=== PATIENT | male | born 1985 | race African-American/Black ===

== ENCOUNTER 2020-11-19 17:59 | Observation (INO) | payer SELFPAY ==
[~2020-11-19] VITALS: Ht 172.7 cm; Wt 78.8 kg
[2020-11-19] MEDS ORDERED: ETOMIDATE 20 MG/10 ML VIAL. IV ONE (18:19)
[2020-11-19] MEDS ORDERED: SUCCINYLCHOLINE 200 MG/10 ML VIAL. ONE (18:20)
--- NOTE | 2020-11-19 18:23 | PHYS DOC ---
Past Medical History Past Medical History: No Pertinent History Past Surgical History: No Surgical History Alcohol Use: Occasionally Drug Use: None General Adult EDM: Chief Complaint: SEIZURE Problems: (1) Altered mental state HPI: HPI: 34-year-old male presents to the emergency department after he was found at [facility] to be apneic, unresponsive. CPR was started by EMS and the patient was bagged in the field. He did not respond, but did have good pulses after 1 round. There is no further medications or defibrillations performed. The patient's glucose was within normal limits in the field. Twelve-lead EKG was unremarkable. The patient is more alert in the emergency department, he states that the last thing he remembers was drinking alcohol with his girlfriend prior to going into [facility] and he does not remember anything after that. He admits to taking a Xanax bar he acquired from the street before this all happened. He now states that he feels better and he complains that he feels very sweaty. The patient denies nausea, vomiting, fever, chills, chest pain, shortness of breath, abdominal pain, urinary symptoms, cough, recent trauma, or any other complaints. Review of Systems: Review of Systems: Constitutional: Denies fever or chills. Eyes: Denies change in vision, pain. HENT: Denies congestion or sore throat. Respiratory: Denies cough or shortness of breath. Cardiovascular: Denies chest pain or edema. GI: Denies abdominal pain, nausea. : Denies change in urination, dysuria. Musculoskeletal: Denies extremity pain, or trauma. Skin: Denies rash, skin change. Neurologic: Denies headache, focal weakness. Psychiatric: Denies depression or anxiety. All other systems reviewed as negative except for what was mentioned in the HPI. Heart Score: C/O Chest Pain: No Family History: Family History: Noncontributory Current Medications: My Orders - UBALDO EUBANKS DO Procedure Category Date Status Time Vital Signs Monitoring ER 11/19/20 Transmitted 18:17 Blood Pressure ER 11/19/20 Transmitted Monitoring 18:17 Cardiac Monitoring ER 11/19/20 Transmitted 18:17 Cbc W [employer] LAB 11/19/20 Complete 18:17 Ua, Cult If Indicated LAB 11/19/20 Logged 18:17 Drugs Of Abuse Ur LAB 11/19/20 Logged 18:17 Comprehensive LAB 11/19/20 Complete Metabolic Panel 18:17 Portable Chest 1v RAD 11/19/20 Resulted 18:17 12 Lead Ekg EKG 11/19/20 Logged 18:17 Creatine Kinase LAB 11/19/20 Complete 18:17 Magnesium LAB 11/19/20 Complete 18:17 Nt-Pro Bnp LAB 11/19/20 Complete 18:17 Troponini LAB 11/19/20 Complete 18:17 Lactic Acid With LAB 11/19/20 In Process Reflex 18:17 Iv Normal Saline PHA 11/19/20 Complete 1000ml Bag (Iv Sodium 18:30 Iv Normal Saline PHA 11/19/20 Complete 1000ml Bag (Iv Sodium 18:30 Salicylate LAB 11/19/20 Complete 18:30 Acetaminophen LAB 11/19/20 Complete 18:30 Manual Differential LAB 11/19/20 Complete 18:16 Potassium Chloride PHA 11/19/20 Logged Tab (Klor-Con) 19:30 Er Bridge Order ADT 11/19/20 Transmitted 19:34 Code Status CODE 11/19/20 Transmitted 19:34 Vital Signs, Per Unit MANDO 11/19/20 Transmitted Protocol 19:34 Regular DIET 11/20/20 Transmitted Breakfast Ambulate With MANDO 11/19/20 Transmitted Assistance 19:34 Cbc W [employer]od[employer] LAB 11/20/20 Verified 06:00 Basic Metabolic Panel LAB 11/20/20 Verified 06:00 Ondansetron Pf PHA 11/19/20 Logged (Zofran) 19:45 Iv Normal Saline PHA 11/19/20 Logged 1000ml Bag (Iv Sodium 19:45 Acetaminophen PHA 11/19/20 Logged (Tylenol) 19:45 Enoxaparin Per Rx PHA 11/19/20 Logged Prophylaxis (Lovenox P 19:45 Allergies: Allergies: Allergies Coded Allergies Type Severity Reaction Last Updated Verified shellfish derived Allergy Unknown UNKNOWN 11/19/20 Yes Physical Exam: PE: Constitutional: Patient is very diaphoretic, breathing on his own, responsive to pain. HENT: Atraumatic, bilateral external ears normal, nose normal. Eyes: PERRLA, EOMI, conjunctiva normal, no discharge. Pupils are 2 mm and reactive bilaterally Neck: Normal range of motion, supple, no stridor. Cardiovascular: Heart rate regular rhythm. 2+ radial pulses Lungs & Thorax: Patient's respiratory rate is appropriate, symmetrical expansion. Bilateral breath sounds clear to auscultation Abdomen: Soft, no tenderness Skin: Warm, dry. Extremities: No tenderness, no cyanosis, ROM intact, no edema. Neurologic: Alert and oriented X 3, normal motor function, normal sensory function, no focal deficits noted. Non ataxic gait. GCS 15. Psychologic: Affect normal, judgment normal, mood normal. Current Patient Data: Labs: Laboratory Tests Test 11/19/20 18:09 11/19/20 18:16 Glucose (Fingerstick) 176 mg/dL (70-99) White Blood Count 6.9 x10^3/uL (4.0-11.0) Red Blood Count 4.61 x10^6/uL (4.30-5.70) Hemoglobin 13.3 g/dL (13.0-17.5) Hematocrit 40.4 % (39.0-53.0) Mean Corpuscular Volume 88 fL (79-100) Mean Corpuscular Hemoglobin 29 pg (25-35) Mean Corpuscular Hemoglobin Concent 33 g/dL (31-37) Red Cell Distribution Width 14.6 % (11.5-14.5) Platelet Count 208 x10^3/uL (140-400) Neutrophils (%) (Auto) 29 % (31-73) Lymphocytes (%) (Auto) 60 % (24-48) Monocytes (%) (Auto) 7 % (0-9) Eosinophils (%) (Auto) 3 % (0-3) Basophils (%) (Auto) 1 % (0-3) Neutrophils # (Auto) 2.0 x10^3/uL (1.8-7.7) Lymphocytes # (Auto) 4.1 x10^3/uL (1.0-4.8) Monocytes # (Auto) 0.5 x10^3/uL (0.0-1.1) Eosinophils # (Auto) 0.2 x10^3/uL (0.0-0.7) Basophils # (Auto) 0.1 x10^3/uL (0.0-0.2) Segmented Neutrophils % 26 % (35-66) Lymphocytes % 59 % (24-48) Atypical Lymphocytes % (Manual) 1 % (0-0) Monocytes % 7 % (0-10) Eosinophils % 7 % (0-5) Platelet Estimate Adequate (ADEQUATE) Sodium Level 143 mmol/L (136-145) Potassium Level 3.2 mmol/L (3.5-5.1) Chloride Level 109 mmol/L (98-107) Carbon Dioxide Level 24 mmol/L (21-32) Anion Gap 10 (6-14) Blood Urea Nitrogen 12 mg/dL (8-26) Creatinine 1.3 mg/dL (0.7-1.3) Estimated GFR (Cockcroft-Gault) 63.6 BUN/Creatinine Ratio 9 (6-20) Glucose Level 179 mg/dL (70-99) Lactic Acid Level 2.5 mmol/L (0.4-2.0) Calcium Level 8.3 mg/dL (8.5-10.1) Magnesium Level 2.0 mg/dL (1.8-2.4) Total Bilirubin 0.2 mg/dL (0.2-1.0) Aspartate Amino Transf (AST/SGOT) 30 U/L (15-37) Alanine Aminotransferase (ALT/SGPT) 28 U/L (16-63) Alkaline Phosphatase 64 U/L (46-116) Creatine Kinase 408 U/L (39-308) Troponin I Quantitative < 0.017 ng/mL (0.000-0.055) GN-Lvu-F-Type Natriuretic Peptide 41 pg/mL (0-124) Total Protein 6.5 g/dL (6.4-8.2) Albumin 3.2 g/dL (3.4-5.0) Albumin/Globulin Ratio 1.0 (1.0-1.7) Salicylates Level 3.5 mg/dL (2.8-20.0) Salicylate Last Dose Date Salicylate Last Dose Time Acetaminophen Level < 2 mcg/ml (10-30) Acetaminophen Last Dose Date Acetaminophen Last Dose Time Vital Signs: Vital Signs Date Time Temp Pulse Resp B/P (MAP) Pulse Ox O2 Delivery O2 Flow Rate FiO2 11/19/20 17:59 97.8 71 20 110/71 88 Room Air 4.0 97.8 EKG: EKG: Normal sinus rhythm rate of 72, no ST-T wave changes, no ectopic beats, normal axis, normal AR, QRS, and QTc intervals. Impression: Normal EKG. interpreted by me, Ubaldo Eubanks D.O. Radiology/Procedures: Radiology/Procedures: PROCEDURE: PORTABLE CHEST 1V Single view chest dated 11/19/2020 6:30 PM: COMPARISON: None Clinical Indication: Altered mental status. Findings: Single upright portable exam of the chest was performed. Heart and mediastinal contours within normal limits. There is mild patchy perihilar opacity. No consolidation or pleural effusion. No pneumothorax. IMPRESSION: Mild patchy perihilar opacity, atelectasis versus early pneumonia. Electronically signed by: Yves Alexandre MD (11/19/2020 6:31 PM) Course & Med Decision Making: Course & Med Decision Making Patient's presentation today is likely consistent with a Xanax overdose/opioid overdose, with GHB intoxication on the differential due to his waxing and waning mental status. Patient was observed in the emergency department and was awake alert GCS 15 protecting airway and saturating well without assistance. Upon initial evaluation in the emergency department he did require to be bagged, he was unresponsive, diaphoretic and thus intubation supplies and medications were prepped. Just before we were about to intubate the patient, he became more alert and responsive. Required 4L O2 NC. We will admitted to the hospital overnight. Hospitalist Dr. Hunter will admit the patient. Critical care time was 35 minutes which includes time at bedside, spent in discussion of patient's care with specialists and/or family members, with interpretation of laboratory and/or radiological studies and is exclusive of procedures. Departure Departure Impression: Primary Impression: Apnea, transient Additional Impression: Benzodiazepine misuse Disposition: ADMITTED INPATIENT (Dr. Hunter) Condition: IMPROVED UBALDO EUBANKS DO Nov 19, 2020 18:22
[2020-11-19] MEDS ORDERED: IV NORMAL SALINE 1000ML BAG 1,000 ML IV ONE ×2 (18:30)
[2020-11-19 18:31] LABS: BASO # 0.1 x10^3/uL (0.0-0.2); BASO % 1 % (0-3); EOS # 0.2 x10^3/uL (0.0-0.7); EOS % 3 % (0-3); HEMATOCRIT 40.4 % (39.0-53.0); HEMOGLOBIN 13.3 g/dL (13.0-17.5); LYMPH # 4.1 x10^3/uL (1.0-4.8); LYMPH % 60 % (24-48); MEAN CORPUSCULAR HEMOGLOBIN 29 pg (25-35); MEAN CORPUSCULAR HGB CONC 33 g/dL (31-37); MEAN CORPUSCULAR VOLUME 88 fL (79-100); MONO # 0.5 x10^3/uL (0.0-1.1); MONO % 7 % (0-9); NEUT % 29 % (31-73); PLATELET COUNT 208 x10^3/uL (140-400); RED BLOOD COUNT 4.61 x10^6/uL (4.30-5.70); RED CELL DISTRIBUTION WIDTH 14.6 % (11.5-14.5); WHITE BLOOD COUNT 6.9 x10^3/uL (4.0-11.0)
--- NOTE | 2020-11-19 18:34 | RAD ---
Single view chest dated 11/19/2020 6:30 PM: COMPARISON: None Clinical Indication: Altered mental status. Findings: Single upright portable exam of the chest was performed. Heart and mediastinal contours within normal limits. There is mild patchy perihilar opacity. No consolidation or pleural effusion. No pneumothora x. IMPRESSION: Mild patchy perihilar opacity, atelectasis versus early pneumonia. Electronically signed by: Yves Alexandre MD (11/19/2020 6:31 PM) MINA
[2020-11-19 18:47] LABS: CALCIUM 8.3 mg/dL (8.5-10.1); CREATININE 1.3 mg/dL (0.7-1.3); GFR 63.6; POTASSIUM 3.2 mmol/L (3.5-5.1)
[2020-11-19 19:00] LABS: ALBUMIN 3.2 g/dL (3.4-5.0); TOTAL BILIRUBIN 0.2 mg/dL (0.2-1.0); TOTAL PROTEIN 6.5 g/dL (6.4-8.2)
[2020-11-19 19:11] LABS: % ATYL 1 % (0-0); % EOS 7 % (0-5); % LYMPHS 59 % (24-48); % MONOS 7 % (0-10); % SEGS 26 % (35-66); PLT ESTIMATE ADEQUATE (ADEQUATE)
[2020-11-19 19:15] LABS: ACETAMIN < 2 mcg/ml (10-30); SALIC 3.5 mg/dL (2.8-20.0)
[2020-11-19] MEDS ORDERED: POTASSIUM CHLORIDE 20 MEQ TABLET.ER. PO ONE (19:30)
[2020-11-19] MEDS ORDERED: ONDANSETRON PF 4 MG/2 ML VIAL. IVP PRN (19:45)
[2020-11-19] MEDS ORDERED: ACETAMINOPHEN 325 MG TABLET. PO PRN (19:45)
[2020-11-19] MEDS: IV NORMAL SALINE 1000ML BAG 1,000 ML IV SCH (19:45)
[2020-11-19 20:23] LABS: BILIRUBIN,URINE NEGATIVE (NEG); CLARITY,URINE CLEAR; COLOR,URINE YELLOW; NITRITE,URINE NEGATIVE (NEG); PROTEIN,URINE 30 mg/dL (NEG-TRACE); UROBILINOGEN,URINE 0.2 mg/dL (0.2 mg/dL)
[2020-11-19 20:31] LABS: BACTERIA,URINE 0 /HPF (0-FEW); HYALINE CASTS, URINE FEW /HPF; RBC,URINE OCC /HPF (0-2); WBC,URINE OCC /HPF (0-4)
[2020-11-19 20:34] LABS: BARBITURATES NEG (NEG); BENZODIAZEPINES POS (NEG); CANNABINOIDS POS (NEG); COCAINE POS (NEG); METHADONE NEG (NEG); OPIATES NEG (NEG); PHENCYCLIDINE NEG (NEG)
[2020-11-19 20:35] LABS: AMPHETAMINE/METHAMPHETAMINE NEG (NEG)
[2020-11-19] MEDS ORDERED: ASPI325T11 PO (22:26)
[2020-11-19] MEDS: guaiFENesin DM 600/30MG 1 TAB TAB.ER.12H PO PRN (22:34)
[2020-11-19 23:00] VITALS: BP 129/83
--- NOTE | 2020-11-20 00:45 | NUR ---
Family member came out to the nurses station to ask for assistance. Nursing staff was unaware that family was in the room. No one was present at the time of admission from the ED. Security notified and they stated that pt did not have special privileges. They directed this film writer to page nursing sugar house supervisor to ask if family could stay. Nursing sugar house supervisor said family member has to leave. Pt and family notified. Family member left without an issue. Shortly after family member left, security came to unit to state that she left her phone and dye room helper. Belongings retrieved from patient room and given to security to take down to family member. Will continue to monitor.
[2020-11-20] MEDS ORDERED: ALBUTEROL SULFATE 2.5 MG/3 ML NEBU. NEB PRN (01:00)
[2020-11-20] MEDS: guaiFENesin/CODEINE 100mg/10mg 5 ML LIQUID PO PRN ×3 (02:01→12:02)
[2020-11-20 03:00] VITALS: BP 140/81
[2020-11-20] MEDS: IV NORMAL SALINE 1000ML BAG 1,000 ML IV SCH ×2 (05:25→11:45)
--- NOTE | 2020-11-20 06:32 | EKG ---
[facility] [address] [place] [address] Test Date: 2020-11-19 Test Time: 18:10:32 Pat Name: ERNESTO PICKERING Department: Room: Gender: M Senior Research Project Manager: : 1985 Requested By: YANET PETERSON Order Number: [id number] Reading MD: Measurements Intervals [place] Rate: 72 P: 49 TX: 142 QRS: 34 QRSD: 92 T: 23 QT: 392 QTc: 431 Interpretive Statements SINUS RHYTHM NON SPECIFIC T ABNORMALITY BORDERLINE ECG RI6.02 No previous ECG available for comparison
[2020-11-20 07:00] VITALS: BP 131/78
[2020-11-20 07:17] LABS: BASO % 0 % (0-3); EOS # 0.1 x10^3/uL (0.0-0.7); EOS % 0 % (0-3); HEMATOCRIT 41.6 % (39.0-53.0); HEMOGLOBIN 13.3 g/dL (13.0-17.5); LYMPH # 1.6 x10^3/uL (1.0-4.8); LYMPH % 11 % (24-48); MEAN CORPUSCULAR HEMOGLOBIN 29 pg (25-35); MEAN CORPUSCULAR HGB CONC 32 g/dL (31-37); MEAN CORPUSCULAR VOLUME 89 fL (79-100); MONO # 0.6 x10^3/uL (0.0-1.1); MONO % 5 % (0-9); NEUT % 84 % (31-73); PLATELET COUNT 168 x10^3/uL (140-400); RED BLOOD COUNT 4.66 x10^6/uL (4.30-5.70); RED CELL DISTRIBUTION WIDTH 14.3 % (11.5-14.5); WHITE BLOOD COUNT 14.3 x10^3/uL (4.0-11.0)
[2020-11-20] MEDS: guaiFENesin DM 600/30MG 1 TAB TAB.ER.12H PO PRN ×2 (08:01→22:53)
[2020-11-20 08:18] LABS: CALCIUM 8.8 mg/dL (8.5-10.1); GFR 104.1; POTASSIUM 4.2 mmol/L (3.5-5.1)
--- NOTE | 2020-11-20 08:25 | PDOC1 ---
History and Physical Date of Service: DOS: DATE: 11/20/20 TIME: 08:23 Chief Complaint: Chief Complain: Altered mental status. History of Present Illness: HPI: Patient is a 34-year-old male with no significant past medical history except for some alcohol use and marijuana smoking. Who [place] emergency department [place]. According to EMS and discussion with the ED physician CPR was started by EMS and the patient was bagged in the field. Patient was not responding but he did have palpable pulses after 1 round. No defibrillation or medications were given. Glucose was normal in the field. Normal EKG. [place] with [place] that was the last thing he had remembered. He also does endorse that he was drinking alcohol with his girlfriend and he took a Xanax bar that was given by his friend. The patient denies nausea, vomiting, fever, chills, chest pain, shortness of breath, abdominal pain, urinary symptoms, recent trauma, or any other complaints. Patient does endorse a productive cough currently. Past Medical/Surgical History: PMH/PSH: No past medical surgical history Allergies: Allergies: Coded Allergies: shellfish derived (Verified Allergy, Unknown, UNKNOWN, 11/19/20) Family History: Family History: Reviewed with no relevant findings Social History: Social History: Occasional alcohol use denies smoking. Current Medications: Current Medications Current Medications Sodium Chloride 1,000 ml @ 1,000 mls/hr 1X ONCE IV Last administered on 11/19/20at 18:02; Start 11/19/20 at 18:30; Stop 11/19/20 at 19:29; Status DC Sodium Chloride 1,000 ml @ 1,000 mls/hr 1X ONCE IV Last administered on 11/19/20at 18:02; Start 11/19/20 at 18:30; Stop 11/19/20 at 19:29; Status DC Etomidate (Amidate) 20 mg STK-MED ONCE IV ; Start 11/19/20 at 18:19; Stop 11/19/20 at 18:20; Status DC Succinylcholine Chloride (Anectine) 200 mg STK-MED ONCE .ROUTE ; Start 11/19/20 at 18:20; Stop 11/19/20 at 18:20; Status DC Potassium Chloride (Klor-Con) 40 meq 1X ONCE PO Last administered on 11/19/20at 20:32; Start 11/19/20 at 19:30; Stop 11/19/20 at 19:38; Status DC Ondansetron HCl (Zofran) 4 mg PRN Q8HRS PRN IVP NAUSEA/VOMITING Last administered on 11/20/20at 05:36; Start 11/19/20 at 19:45; Stop 11/20/20 at 19:44 Sodium Chloride 1,000 ml @ 125 mls/hr Q8H IV Last administered on 11/20/20at 05:25; Start 11/19/20 at 19:45; Stop 11/20/20 at 19:44 Acetaminophen (Tylenol) 650 mg PRN Q4HRS PRN PO FEVER > 100.3'F; Start 11/19/20 at 19:45; Stop 11/20/20 at 19:44 Enoxaparin Sodium (Lovenox Per Pharmacy Prophylaxis Dosing) 1 each PRN DAILY PRN MC SEE COMMENTS; Start 11/19/20 at 19:45 Guaifenesin (MUCINEX ER with DM) 2 tab PRN BID PRN PO cough 2ND CHOICE Last administered on 11/20/20at 08:01; Start 11/19/20 at 22:30 Enoxaparin Sodium (Lovenox 40mg Syringe) 40 mg DAILY SQ ; Start 11/20/20 at 09:00 Guaifenesin/ Codeine Phosphate (Robitussin Ac) 10 ml PRN Q4HRS PRN PO COUGH 1ST CHOICE Last administered on 11/20/20at 06:35; Start 11/20/20 at 00:45 Albuterol Sulfate (Ventolin Neb Soln) 2.5 mg PRN Q4HRS PRN NEB SHORTNESS OF BREATH Last administered on 11/20/20at 01:18; Start 11/20/20 at 01:00 Active Scripts Active Reported Aspirin Ec (Aspirin) 325 Mg Tablet. 1 Tab PO DAILY ROS: Review of Systems Review of System REVIEW OF SYSTEMS: GENERAL: Denies weakness SKIN: No bruising, hair changes or rashes. EYES: No blurred, double or loss of vision. NOSE AND THROAT: No history of nosebleeds, hoarseness or sore throat. HEART: No history of palpitations, chest pain or shortness of breath on exertion. LUNGS: Denies cough, hemoptysis, wheezing or shortness of breath. GASTROINTESTINAL: Denies changes in appetite, nausea, vomiting, diarrhea or constipation. GENITOURINARY: No history of frequency, urgency, hesitancy or nocturia. NEUROLOGIC: Denies history of numbness, tingling, or tremor. PSYCHIATRIC: No history of panic, anxiety or depression. ENDOCRINE: No history of heat or cold intolerance, polyuria or polydipsia. EXTREMITIES: Denies joint pain, pain on walking or stiffness. Physical Exam: Vital Signs: Vital Signs Date Time Temp Pulse Resp B/P (MAP) Pulse Ox O2 Delivery O2 Flow Rate FiO2 11/20/20 03:00 98.8 80 18 140/81 (100) 97 Nasal Cannula 3.0 98.8 Physcial Exam: GEN: No apparent distress. Alert and oriented HEENT: Normal cephalic, atraumatic, external auditory canals are patent EYES: Extraocular muscles are intact, pupil are equally round and reactive to light and accommodation MUSCULOSKELETAL: Well developed , well nourished, good range of motion ENDOCRINE: No thyromegaly was palpated LYMPHATICS: No cervical chain or axillary nodes were noted HEMATOPOIETIC: No bruising NECK: Supple, no JVD, no thyromegaly was noted LUNGS: Clear to auscultation in all lung doty without rhonchi or wheezing HEART: RRR, S!, S2 present. Peripheral pulses intact, no obvious murmurs noted ABDOMEN: Soft, nontender. Positive bowel sounds, no organomegaly, normal bowel sounds EXTREMITIES: Without clubbing, cyanosis, or edema. Pedal pulses intact. Negative Homans sign NEUROLOGIC: Normal speech and tone. A&O x 3, moves all extremities, no obvious focal deficits PSYCHIATRIC: Normal affect, normal mood. Stable SKIN: No ulcerations or rashes, good skin turgor, no jaundice VASCULAR: Good capillary refill, neurovascular bundle appears to be intact Labs: Labs: Laboratory Tests Test 11/19/20 18:09 11/19/20 18:16 11/19/20 20:15 11/19/20 22:10 Glucose (Fingerstick) 176 mg/dL (70-99) White Blood Count 6.9 x10^3/uL (4.0-11.0) Red Blood Count 4.61 x10^6/uL (4.30-5.70) Hemoglobin 13.3 g/dL (13.0-17.5) Hematocrit 40.4 % (39.0-53.0) Mean Corpuscular Volume 88 fL (79-100) Mean Corpuscular Hemoglobin 29 pg (25-35) Mean Corpuscular Hemoglobin Concent 33 g/dL (31-37) Red Cell Distribution Width 14.6 % (11.5-14.5) Platelet Count 208 x10^3/uL (140-400) Neutrophils (%) (Auto) 29 % (31-73) Lymphocytes (%) (Auto) 60 % (24-48) Monocytes (%) (Auto) 7 % (0-9) Eosinophils (%) (Auto) 3 % (0-3) Basophils (%) (Auto) 1 % (0-3) Neutrophils # (Auto) 2.0 x10^3/uL (1.8-7.7) Lymphocytes # (Auto) 4.1 x10^3/uL (1.0-4.8) Monocytes # (Auto) 0.5 x10^3/uL (0.0-1.1) Eosinophils # (Auto) 0.2 x10^3/uL (0.0-0.7) Basophils # (Auto) 0.1 x10^3/uL (0.0-0.2) Segmented Neutrophils % 26 % (35-66) Lymphocytes % 59 % (24-48) Atypical Lymphocytes % (Manual) 1 % (0-0) Monocytes % 7 % (0-10) Eosinophils % 7 % (0-5) Platelet Estimate Adequate (ADEQUATE) Sodium Level 143 mmol/L (136-145) Potassium Level 3.2 mmol/L (3.5-5.1) Chloride Level 109 mmol/L (98-107) Carbon Dioxide Level 24 mmol/L (21-32) Anion Gap 10 (6-14) Blood Urea Nitrogen 12 mg/dL (8-26) Creatinine 1.3 mg/dL (0.7-1.3) Estimated GFR (Cockcroft-Gault) 63.6 BUN/Creatinine Ratio 9 (6-20) Glucose Level 179 mg/dL (70-99) Lactic Acid Level 2.5 mmol/L (0.4-2.0) 0.9 mmol/L (0.4-2.0) Calcium Level 8.3 mg/dL (8.5-10.1) Magnesium Level 2.0 mg/dL (1.8-2.4) Total Bilirubin 0.2 mg/dL (0.2-1.0) Aspartate Amino Transf (AST/SGOT) 30 U/L (15-37) Alanine Aminotransferase (ALT/SGPT) 28 U/L (16-63) Alkaline Phosphatase 64 U/L (46-116) Creatine Kinase 408 U/L (39-308) Troponin I Quantitative < 0.017 ng/mL (0.000-0.055) [id number]-[id number]-Type Natriuretic Peptide 41 pg/mL (0-124) Total Protein 6.5 g/dL (6.4-8.2) Albumin 3.2 g/dL (3.4-5.0) Albumin/Globulin Ratio 1.0 (1.0-1.7) Salicylates Level 3.5 mg/dL (2.8-20.0) Salicylate Last Dose Date Salicylate Last Dose Time Acetaminophen Level < 2 mcg/ml (10-30) Acetaminophen Last Dose Date Acetaminophen Last Dose Time Urine Collection Type Unknown Urine Color Yellow Urine Clarity Clear Urine pH 6.0 (<5.0-8.0) Urine Specific Elliott 1.025 (1.000-1.030) Urine Protein 30 mg/dL (NEG-TRACE) Urine Glucose (UA) Negative mg/dL (NEG) Urine Ketones (Stick) Negative mg/dL (NEG) Urine Blood Negative (NEG) Urine Nitrite Negative (NEG) Urine Bilirubin Negative (NEG) Urine Urobilinogen Dipstick 0.2 mg/dL (0.2 mg/dL) Urine Leukocyte Esterase Negative (NEG) Urine RBC Occ /HPF (0-2) Urine WBC Occ /HPF (0-4) Urine Squamous Epithelial Cells Few /LPF Urine Bacteria 0 /HPF (0-FEW) Urine Hyaline Casts Few /HPF Urine Mucus Marked /LPF Urine Opiates Screen Neg (NEG) Urine Methadone Screen Neg (NEG) Urine Barbiturates Neg (NEG) Urine Phencyclidine Screen Neg (NEG) Urine Amphetamine/Methamphetamine Neg (NEG) Urine Benzodiazepines Screen Pos (NEG) Urine Cocaine Screen Pos (NEG) Urine Cannabinoids Screen Pos (NEG) Urine Ethyl Alcohol Neg (NEG) Test 11/20/20 06:00 White Blood Count 14.3 x10^3/uL (4.0-11.0) Red Blood Count 4.66 x10^6/uL (4.30-5.70) Hemoglobin 13.3 g/dL (13.0-17.5) Hematocrit 41.6 % (39.0-53.0) Mean Corpuscular Volume 89 fL (79-100) Mean Corpuscular Hemoglobin 29 pg (25-35) Mean Corpuscular Hemoglobin Concent 32 g/dL (31-37) Red Cell Distribution Width 14.3 % (11.5-14.5) Platelet Count 168 x10^3/uL (140-400) Neutrophils (%) (Auto) 84 % (31-73) Lymphocytes (%) (Auto) 11 % (24-48) Monocytes (%) (Auto) 5 % (0-9) Eosinophils (%) (Auto) 0 % (0-3) Basophils (%) (Auto) 0 % (0-3) Neutrophils # (Auto) 12.0 x10^3/uL (1.8-7.7) Lymphocytes # (Auto) 1.6 x10^3/uL (1.0-4.8) Monocytes # (Auto) 0.6 x10^3/uL (0.0-1.1) Eosinophils # (Auto) 0.1 x10^3/uL (0.0-0.7) Basophils # (Auto) 0.0 x10^3/uL (0.0-0.2) Sodium Level 141 mmol/L (136-145) Potassium Level 4.2 mmol/L (3.5-5.1) Chloride Level 107 mmol/L (98-107) Carbon Dioxide Level 26 mmol/L (21-32) Anion Gap 8 (6-14) Blood Urea Nitrogen 11 mg/dL (8-26) Creatinine 1.0 mg/dL (0.7-1.3) Estimated GFR (Cockcroft-Gault) 104.1 Glucose Level 71 mg/dL (70-99) Calcium Level 8.8 mg/dL (8.5-10.1) Laboratory Tests Test 11/19/20 18:09 11/19/20 18:16 11/19/20 20:15 11/19/20 22:10 Glucose (Fingerstick) 176 mg/dL (70-99) White Blood Count 6.9 x10^3/uL (4.0-11.0) Red Blood Count 4.61 x10^6/uL (4.30-5.70) Hemoglobin 13.3 g/dL (13.0-17.5) Hematocrit 40.4 % (39.0-53.0) Mean Corpuscular Volume 88 fL (79-100) Mean Corpuscular Hemoglobin 29 pg (25-35) Mean Corpuscular Hemoglobin Concent 33 g/dL (31-37) Red Cell Distribution Width 14.6 % (11.5-14.5) Platelet Count 208 x10^3/uL (140-400) Neutrophils (%) (Auto) 29 % (31-73) Lymphocytes (%) (Auto) 60 % (24-48) Monocytes (%) (Auto) 7 % (0-9) Eosinophils (%) (Auto) 3 % (0-3) Basophils (%) (Auto) 1 % (0-3) Neutrophils # (Auto) 2.0 x10^3/uL (1.8-7.7) Lymphocytes # (Auto) 4.1 x10^3/uL (1.0-4.8) Monocytes # (Auto) 0.5 x10^3/uL (0.0-1.1) Eosinophils # (Auto) 0.2 x10^3/uL (0.0-0.7) Basophils # (Auto) 0.1 x10^3/uL (0.0-0.2) Segmented Neutrophils % 26 % (35-66) Lymphocytes % 59 % (24-48) Atypical Lymphocytes % (Manual) 1 % (0-0) Monocytes % 7 % (0-10) Eosinophils % 7 % (0-5) Platelet Estimate Adequate (ADEQUATE) Sodium Level 143 mmol/L (136-145) Potassium Level 3.2 mmol/L (3.5-5.1) Chloride Level 109 mmol/L (98-107) Carbon Dioxide Level 24 mmol/L (21-32) Anion Gap 10 (6-14) Blood Urea Nitrogen 12 mg/dL (8-26) Creatinine 1.3 mg/dL (0.7-1.3) Estimated GFR (Cockcroft-Gault) 63.6 BUN/Creatinine Ratio 9 (6-20) Glucose Level 179 mg/dL (70-99) Lactic Acid Level 2.5 mmol/L (0.4-2.0) 0.9 mmol/L (0.4-2.0) Calcium Level 8.3 mg/dL (8.5-10.1) Magnesium Level 2.0 mg/dL (1.8-2.4) Total Bilirubin 0.2 mg/dL (0.2-1.0) Aspartate Amino Transf (AST/SGOT) 30 U/L (15-37) Alanine Aminotransferase (ALT/SGPT) 28 U/L (16-63) Alkaline Phosphatase 64 U/L (46-116) Creatine Kinase 408 U/L (39-308) Troponin I Quantitative < 0.017 ng/mL (0.000-0.055) PJ-Avh-Y-Type Natriuretic Peptide 41 pg/mL (0-124) Total Protein 6.5 g/dL (6.4-8.2) Albumin 3.2 g/dL (3.4-5.0) Albumin/Globulin Ratio 1.0 (1.0-1.7) Salicylates Level 3.5 mg/dL (2.8-20.0) Salicylate Last Dose Date Salicylate Last Dose Time Acetaminophen Level < 2 mcg/ml (10-30) Acetaminophen Last Dose Date Acetaminophen Last Dose Time Urine Collection Type Unknown Urine Color Yellow Urine Clarity Clear Urine pH 6.0 (<5.0-8.0) Urine Specific Elliott 1.025 (1.000-1.030) Urine Protein 30 mg/dL (NEG-TRACE) Urine Glucose (UA) Negative mg/dL (NEG) Urine Ketones (Stick) Negative mg/dL (NEG) Urine Blood Negative (NEG) Urine Nitrite Negative (NEG) Urine Bilirubin Negative (NEG) Urine Urobilinogen Dipstick 0.2 mg/dL (0.2 mg/dL) Urine Leukocyte Esterase Negative (NEG) Urine RBC Occ /HPF (0-2) Urine WBC Occ /HPF (0-4) Urine Squamous Epithelial Cells Few /LPF Urine Bacteria 0 /HPF (0-FEW) Urine Hyaline Casts Few /HPF Urine Mucus Marked /LPF Urine Opiates Screen Neg (NEG) Urine Methadone Screen Neg (NEG) Urine Barbiturates Neg (NEG) Urine Phencyclidine Screen Neg (NEG) Urine Amphetamine/Methamphetamine Neg (NEG) Urine Benzodiazepines Screen Pos (NEG) Urine Cocaine Screen Pos (NEG) Urine Cannabinoids Screen Pos (NEG) Urine Ethyl Alcohol Neg (NEG) Test 11/20/20 06:00 White Blood Count 14.3 x10^3/uL (4.0-11.0) Red Blood Count 4.66 x10^6/uL (4.30-5.70) Hemoglobin 13.3 g/dL (13.0-17.5) Hematocrit 41.6 % (39.0-53.0) Mean Corpuscular Volume 89 fL (79-100) Mean Corpuscular Hemoglobin 29 pg (25-35) Mean Corpuscular Hemoglobin Concent 32 g/dL (31-37) Red Cell Distribution Width 14.3 % (11.5-14.5) Platelet Count 168 x10^3/uL (140-400) Neutrophils (%) (Auto) 84 % (31-73) Lymphocytes (%) (Auto) 11 % (24-48) Monocytes (%) (Auto) 5 % (0-9) Eosinophils (%) (Auto) 0 % (0-3) Basophils (%) (Auto) 0 % (0-3) Neutrophils # (Auto) 12.0 x10^3/uL (1.8-7.7) Lymphocytes # (Auto) 1.6 x10^3/uL (1.0-4.8) Monocytes # (Auto) 0.6 x10^3/uL (0.0-1.1) Eosinophils # (Auto) 0.1 x10^3/uL (0.0-0.7) Basophils # (Auto) 0.0 x10^3/uL (0.0-0.2) Sodium Level 141 mmol/L (136-145) Potassium Level 4.2 mmol/L (3.5-5.1) Chloride Level 107 mmol/L (98-107) Carbon Dioxide Level 26 mmol/L (21-32) Anion Gap 8 (6-14) Blood Urea Nitrogen 11 mg/dL (8-26) Creatinine 1.0 mg/dL (0.7-1.3) Estimated GFR (Cockcroft-Gault) 104.1 Glucose Level 71 mg/dL (70-99) Calcium Level 8.8 mg/dL (8.5-10.1) Images: Images PROCEDURE: PORTABLE CHEST 1V Single view chest dated 11/19/2020 6:30 PM: COMPARISON: None Clinical Indication: Altered mental status. Findings: Single upright portable exam of the chest was performed. Heart and mediastinal contours within normal limits. There is mild patchy perihilar opacity. No consolidation or pleural effusion. No pneumothorax. IMPRESSION: Mild patchy perihilar opacity, atelectasis versus early pneumonia. Assessment/Plan Assessment/Plan Acute benzo overdose Acute hypoxic respiratory failure Acute toxic encephalopathy Lactic acidemia Mild hypokalemia Elevated CK levels Polysubstance positivitypositive for cocaine, marijuana, benzodiazepines Admit to hospital service for further management Continue observation Combivent inhaler or breathing treatments as needed Continue to observe for developing pneumonia. Continue empiric IV antibiotics for possible aspiration pneumonia Pending sputum culture SCD for DVT prophylaxis Protonix GI prophylaxis ADA diet Full code Discussed with RN and SW Disposition inpatient management as above Surrogate decision maker is undesignated Justifications for Admission Other Justification NIKKI JUDD MD Nov 20, 2020 08:25
[2020-11-20] MEDS: ENOXAPARIN 40 MG/0.4 ML SYRINGE. SQ SCH (09:04)
[2020-11-20 11:00] VITALS: BP 116/71
--- NOTE | 2020-11-20 13:28 | NUR ---
SW following. Discussed with RN, pt from home, room air, regular diet, rapid COVID-19 negative. MYNOR consulted for drug use/abuse. Med Assist following for self pay status. KARTIK will continue to follow. Addendum: 11/20/20 at 1552 by CAMERON VERDUGO Bernie MORENO) met with pt, pt is open with [facility] and will follow up after discharge.
[2020-11-20] MEDS: IPRATROPIUM/ALBUTEROL 20/100mcg/INH INHALER. INH SCH ×4 (14:29→23:42)
[2020-11-20 15:00] VITALS: BP 130/83
[2020-11-20] MEDS ORDERED: PIP/TAZO PER PHARMACY MC PRN (15:15)
[2020-11-20] MEDS: PIPERACILLIN/TAZOBACTAM 3.375 GM in IV NORMAL SALINE 50ML 50 ML IV SCH ×2 (16:24→23:59)
[2020-11-20 19:00] VITALS: BP 142/90
[2020-11-20 23:00] VITALS: BP 118/61
[2020-11-21 03:00] VITALS: BP 137/83
[2020-11-21] MEDS: IPRATROPIUM/ALBUTEROL 20/100mcg/INH INHALER. INH SCH ×3 (04:00→12:05)
[2020-11-21] MEDS: PIPERACILLIN/TAZOBACTAM 3.375 GM in IV NORMAL SALINE 50ML 50 ML IV SCH ×3 (06:03→12:11)
[2020-11-21 07:00] VITALS: BP 146/87
[2020-11-21] MEDS: ENOXAPARIN 40 MG/0.4 ML SYRINGE. SQ SCH (09:04)
[2020-11-21 11:00] VITALS: BP 153/89
[2020-11-21] MEDS ORDERED: LACTOBACILLUS RHAMNOSUS GG 1 CAPSULE. PO SCH (12:00)
--- NOTE | 2020-11-21 12:12 | NUR ---
Non administered patients 1200 dose of Zosyn due to no venous access. Patient removed his own IV because doctor told him he would be discharged by 1pm.
[2020-11-21] MEDS ORDERED: AMOX1TAB58 PO (13:27)
--- NOTE | 2020-11-21 13:28 | DISCH ---
DISCHARGE INSTRUCTIONS Condition on Discharge Condition on Discharge: Stable Activity After Discharge Activity Instructions for Disc: Activity as tolerated Lifting Instructions after Dis: No pulling or pushing Exercise Instruction after Dis: Walk 15 min, 3 x per day Driving Instructions after Dis: Do not drive today Diet after Discharge Diet after Discharge: Regular Follow-Up Follow up with: PCP within 2 weeks of discharge NIKKI JUDD MD Nov 21, 2020 13:28
--- NOTE | 2020-11-21 15:03 | NUR ---
Discharge Note: Patient was discharged home with self care. Patient pull out own IV around lunch time. Patient was given discharge summary/instructions, follow-ups, and educational material. Patients prescriptions were sent to patient preferred pharmacy. Patient did not have any further questions or concerns. Patient decided to ambulate to the main entrance, with all personal belongings, accompanied by [employer], where his ride was waiting for him to take him home.
--- NOTE | 2020-11-21 15:42 | NUR ---
SW following. Discussed with RN, discharge order for home with self care. COVID-19 negative.
--- NOTE | 2020-11-25 16:37 | PDOC3 ---
[facility]-Discharge Summary Date of Admission: Date of Admission: Nov 20, 2020 Date of Discharge: Date of Discharge: Nov 21, 2020 Discharge Diagnosis: Discharge Diagnosis: Acute benzo overdose Acute hypoxic respiratory failure Acute toxic encephalopathy Lactic acidemia Mild hypokalemia Elevated CK levels Polysubstance positivitypositive for cocaine, marijuana, benzodiazepines Hospital Course: Hospital Course: 34-year-old male with no significant past medical history except for some alcoho l use and marijuana smoking. Who comes [place] emergency [place]. According to EMS and discussion with the ED physician CPR was started by EMS and the patient was bagged in the field. Patient was not responding but he did have palpable pulses after 1 round. No defibrillation or medications were given. Glucose was normal in the field. Normal EKG. Patient remembers [facility] with his girlfriend that was the last thing he had remembered. He also does endorse that he was drinking alcohol with his girlfriend and he took a Xanax bar that was given by his friend. The patient denies nausea, vomiting, fever, chills, chest pain, shortness of breath, abdominal pain, urinary symptoms, recent trauma, or any other complaints. Patient does endorse a productive cough currently. PAT team came and evaluated patient and cleared him for discharge. By day of discharge, Pt was clinically stable and ready for discharge. He will be sent home with 3 day augmentin for mild aspiration respiratory infection. Disposition: Disposition/Orders: D/C to Home Activity: Activity: Resume previous activity Diet: Diet: Regular Medications: Home Meds Active Scripts Amoxicillin/Potassium Clav (AUGMENTIN 500-125 TABLET) 1 Each Tablet, 1 TAB PO BID for aspiration pneumonia for 5 Days, #10 TAB 0 Refills Prov:NIKKI JUDD MD 11/21/20 Reported Medications Aspirin (ASPIRIN EC) 325 Mg Tablet.dr, 1 TAB PO DAILY for preventative , #30 TAB 5 Refills 11/19/20 Scheduled Amoxicillin/Potassium Clav (Augmentin 500-125 Tablet), 1 TAB PO BID Aspirin (Aspirin Ec), 1 TAB PO DAILY, (Reported) Total Time: Total Time: Total time spent was 33 minutes in preparing scripts, discharge planning with SW and RN, and preparing this discharge summary. Justicifation of Admission Dx: Justifications for Admission: Justification of Admission Dx: Yes Sepsis: Altered Mental Status NIKKI JUDD MD Nov 25, 2020 16:37
== END 2020-11-21 15:07 | disposition home or self-care (01) ==
LOC: ER 17:59 → 5 NORTH 20:50
PROVIDERS: ADMIT Family Medicine; ATTEND Family Medicine
DX: T42.4X1A Poisoning by benzodiazepines, accidental (unintentional), initial encounter (principal); J96.01 Acute respiratory failure with hypoxia; G92 Toxic encephalopathy; Z20.822 Contact with and (suspected) exposure to COVID-19; E87.6 Hypokalemia; R41.82 Altered mental status, unspecified; R56.9 Unspecified convulsions; E87.2 Acidosis; Z79.899 Other long term (current) drug therapy; Y92.89 Other specified places as the place of occurrence of the external cause
CPT/HCPCS: 36415; 71045; 80048; 80053; 80307; 80329; 81001; 82550; 82962; 83605; 83735; 83880; 84484; 85007; 85025; 87426; 93005; 94640; 96361; 96365; 96366; 96372; 96375; 99285; G0378; J1650; J2405; J2543; J7030; J7613; U0003; U0005; G0379; G0480

== ENCOUNTER 2021-03-20 08:47 | Emergency (ER) | payer SELFPAY ==
[~2021-03-20] VITALS: Ht 172.7 cm; Wt 78.1 kg
[~2021-03-20 08:47] MED LIST: AMOX1TAB58 PO; ASPI325T11 PO
[2021-03-20 09:31] VITALS: BP 136/90
--- NOTE | 2021-03-20 09:56 | PHYS DOC ---
Past Medical History Past Medical History: No Pertinent History Past Surgical History: No Surgical History Smoking Status: Current Every Day Smoker Alcohol Use: Occasionally Drug Use: None General Adult EDM: Chief Complaint: OTHER COMPLAINTS HPI: HPI: Patient is a 35 year old male who presents with sore throat and complaints of pain to left inner cheek x2-day. Patient was recently sick with fever and congestion 2 weeks ago. Patient denies cough, shortness of breath, fever. Patient states that he has been taking ibuprofen which is helped with pain. history of COPD. Not up-to-date on immunizations. Review of Systems: Review of Systems: ROS At least 10 ROS systems have been reviewed and are negative except as documented in the HPI. General: Negative except as outlined in HPI above. Skin: Negative except as outlined in HPI above. HEENT: Negative except as outlined in HPI above. Neck: Negative except as outlined in HPI above. Respiratory: Negative except as outlined in HPI above.. Cardiovascular: Negative except as outlined in HPI above. Abdomen: Negative except as outlined in HPI above. : Negative except as outlined in HPI above. Back/MSK: Negative except as outlined in HPI above. Neuro: Negative except as outlined in HPI above. Psych: Negative except as outlined in HPI above. Heart Score: C/O Chest Pain: No Risk Factors: Risk Factors: DM, Current or recent (<one month) smoker, HTN, HLP, family history of CAD, obesity. Risk Scores: Score 0 - 3: 2.5% MACE over next 6 weeks - Discharge Home Score 4 - 6: 20.3% MACE over next 6 weeks - Admit for Clinical Observation Score 7 - 10: 72.7% MACE over next 6 weeks - Early Invasive Strategies Allergies: Allergies: Allergies Coded Allergies Type Severity Reaction Last Updated Verified shellfish derived Allergy Unknown UNKNOWN 11/19/20 Yes Physical Exam: PE: Constitutional: Well developed, well nourished, no acute distress, non-toxic appearance. [] HENT: Normocephalic, atraumatic, bilateral external ears normal, oropharynx moist, oropharynx red and irritated, no oral exudates, nose normal. [] Eyes: PERRLA, EOMI, conjunctiva normal, no discharge. [] Neck: Normal range of motion, cervical lymph node tenderness, supple, no stridor. [] Cardiovascular:Heart rate regular rhythm, no murmur [] Lungs & Thorax: Bilateral breath sounds clear to auscultation [] Abdomen: Bowel sounds normal, soft, no tenderness, no masses, no pulsatile masses. [] Skin: Warm, dry, no erythema, no rash. [] Back: No tenderness, no CVA tenderness. [] Extremities: No tenderness, no cyanosis, no clubbing, ROM intact, no edema. [] Neurologic: Alert and oriented X 3, normal motor function, normal sensory function, no focal deficits noted. [] Psychologic: Affect normal, judgement normal, mood normal. [] Current Patient Data: Vital Signs: Vital Signs Date Time Temp Pulse Resp B/P (MAP) Pulse Ox O2 Delivery O2 Flow Rate FiO2 03/20/21 09:31 98.5 68 20 136/90 (105) 98 Room Air 98.5 EKG: EKG: [] Radiology/Procedures: Radiology/Procedures: [] Course & Med Decision Making: Course & Med Decision Making Pertinent Labs and Imaging studies reviewed. (See chart for details) [] 35-year-old male presents with sore throat, cervical lymph node tenderness. Erythema seen on pharyngitis. Afebrile. No oral exudates seen. No tonsillar swelling. Patient is able to maintain secretions. Patient also has sore to inner left cheek which is most likely a canker sore. Patient most likely bit his inner cheek while eating and is producing pain. Advised patient he most likely has postnasal drip which is causing irritation to throat. Ibuprofen and Tylenol for discomfort. Warm salt water gargles. [id number] Mucinex DM. Follow-up with PCP if symptoms do not improve. Return to emergency room with worsening symptoms or concerns. Magy Disclaimer: Magy Disclaimer: This electronic medical record was generated, in whole or in part, using a voice recognition dictation system. Departure Departure Impression: Primary Impression: Sore throat Disposition: 01 HOME / SELF CARE / HOMELESS Condition: STABLE Referrals: NO PCP (PCP) Patient Instructions: Sore Throat, [id number] Additional Instructions: You are seen in the emergency room for sore throat and canker sore to left inner cheek. Warm salt water gargles at home, ibuprofen, Mucinex DM help with symptoms. Follow-up with your PCP if symptoms do not improve. Return to the emergency room with worsening symptoms or concerns EMERGENCY DEPARTMENT GENERAL DISCHARGE INSTRUCTIONS Thank you for coming to [facility] Emergency Department (ED) today and trusting us with you care. We trust that you had a positive experience in our Emergency Department. If you wish to speak to the department management, you may call the Director at [phone]. YOUR FOLLOW UP INSTRUCTIONS ARE FOLLOWS: 1. Do you have a private Doctor? If you do not have a private doctor, please ask for a resource list of physicians or clinics that may be able to assist you with follow up care. 2. The Emergency Physicain has interpreted your x-rays. The X-Ray specialist will also review them. If there is a change in the findings, you will be notified in 48 hours when at all possible. 3. A lab test or culture has been done, your results will be reviewed and you will be notified if you need a change in treatment. ADDITIONAL INSTRUCTIONS AND INFORMATION: 1. Your care today has been supervised by a physician who is specially trained in emergency care. Many problems require more than one evaluation for a complete diagnosis and treatment. We recommend that you schedule your follow up appointment as recommended to ensure complete treatment of you illness or injury. If you are unable to obtain follow up care and continue to have a problem, or if your condition worsens, we recommend that you return to the ED. 2. We are not able to safely determine your condition over the phone nor are we able to give sound medical advice over the phone. For these safety reasons, if you call for medical advice we will ask you to come to the ED for further evaluation. 3. If you have any questions regarding these discharge instructions please call the ED at [phone]. SAFETY INFORMATION: In the interest of safety, wellness, and injury prevention; we encourage you to wear your sealbelt, if you smoke; quite smoking, and we encourage family to use a protective helmet for bicycling and other sporting events that present an increased risk for head injury. IF YOUR SYMPTOMS WORSEN OR NEW SYMPTOMS DEVELOP, OR YOU HAVE CONCERNS ABOUT YOUR CONDITION; OR IF YOUR CONDITION WORSENS WHILE YOU ARE WAITING FOR YOUR FOLLOW UP APPOINTMENT; EITHER CONTACT YOUR PRIMARY CARE DOCTOR, THE PHYSICIAN WHOSE NAME AND NUMBER YOU WERE GIVEN, OR RETURN TO THE ED IMMEDIATELY. CAMERON BAIRES APRN Mar 20, 2021 09:55
== END 2021-03-20 10:02 | disposition home or self-care (01) ==
LOC: ER 08:47
DX: J02.9 Acute pharyngitis, unspecified (principal); R51.9 Headache, unspecified; R50.9 Fever, unspecified; F17.200 Nicotine dependence, unspecified, uncomplicated
CPT/HCPCS: 99281